=== PATIENT | female | born 1995 | race Caucasian/White ===

== ENCOUNTER 2018-01-08 18:28 | Emergency (ER) | payer BC ==
[2018-01-08 20:39] VITALS: BP 107/61
--- NOTE | 2018-01-08 20:41 | UC ---
UC General HPI - HPI Summary HPI Summary: Per dining car hop "Onset cough 01/02-01/03, harsh cough today causing nausea, vomiting x 3 today." -denies any chance of and refuses test. no intercourse in months she reports. -goes to college, no local PCP. -sx started ~ 1 wk ago and got better w/ cough etc. today started vomiting. hard to keep things down. ate 2 bites of cereal and forced herself to keep it down. last vomit was at 17:30. doesnt have appetite and hasnt been able to drink much. no diarrhea. no abd pain. no wheezing. no coffe ground emesis. no blood. no dysuria. - History of Current Complaint Chief Complaint: UCGeneralIllness Stated Complaint: FEVER,NAUSEA Time Seen by Provider: 01/08/18 20:40 Hx Last Menstrual Period: nuvaring Pain Intensity: 3 - Allergy/Home Medications Allergies/Adverse Reactions: Allergies Allergy/AdvReac Type Severity Reaction Status Date / Time No Known Allergies Allergy Verified 01/08/18 20:31 Home Medications: Home Medications Acetaminophen [Extra Strength Non-Aspirin] 1,000 mg PO ONCE PRN 01/08/18 [ History Confirmed 01/08/18] Etonogest/Eth.estradiol (Nf) [Nuvaring Vaginal Ring] 1 each VAGINAL .SEE COMMENTS 01/08/18 [History Confirmed 01/08/18] PMH/Surg Hx/FS Hx/Imm Hx Previously Healthy: Yes - Surgical History Surgical History: None - Family History Known Family History: Negative: Respiratory Disease - no asthma - Social History Alcohol Use: Occasionally Substance Use Type: None Smoking Status (MU): Never Smoked Tobacco Review of Systems Constitutional: Negative Skin: Negative Eyes: Negative ENT: Negative Respiratory: Cough Cardiovascular: Negative Gastrointestinal: Vomiting, Nausea Genitourinary: Negative Motor: Negative Neurovascular: Negative Musculoskeletal: Negative Neurological: Negative Psychological: Negative Is Patient Immunocompromised?: No All Other Systems Reviewed And Are Negative: Yes Physical Exam Triage Information Reviewed: Yes Appearance: Well-Appearing, No Pain Distress, Well-Nourished Vital Signs: Initial Vital Signs Temp 98.5 F 01/08/18 20:33 Pulse 61 01/08/18 20:33 Resp 12 01/08/18 20:33 BP 107/61 01/08/18 20:33 Pulse Ox 100 01/08/18 20:33 Vital Signs Reviewed: Yes Eye Exam: Normal Eyes: Positive: Conjunctiva Clear ENT Exam: Normal ENT: Positive: Pharynx normal, TMs normal. Negative: Tonsillar swelling, Tonsillar exudate, Sinus tenderness Dental Exam: Normal Neck exam: Normal Neck: Positive: Supple, Nontender, No Lymphadenopathy Respiratory Exam: Normal Respiratory: Positive: Lungs clear, Normal breath sounds, No respiratory distress, No accessory muscle use. Negative: Crackles, Rhonchi, Stridor, Wheezing Cardiovascular Exam: Normal Cardiovascular: Positive: RRR, No Murmur, Pulses Normal Abdomen Description: Positive: Nontender, Soft. Negative: CVA Tenderness (R), CVA Tenderness (L) Bowel Sounds: Positive: Present Musculoskeletal Exam: Normal Neurological Exam: Normal Psychological Exam: Normal Skin Exam: Normal Course/Dx - Course Course Of Treatment: Zofran given here and rx for home. increase fluids, rest. supportive care. f/u in ER if sx owrsen as may need IVF. discussed improtance of role in hydration. resp exam is nml. - Differential Dx - Multi-Symptom Differential Diagnoses: Other - gastrenterits Provider Diagnoses: nausea & vomiting Discharge - Sign-Out/Discharge Documenting (check all that apply): Patient Departure All imaging exams completed and their final reports reviewed: No Studies - Discharge Plan Condition: Stable Disposition: HOME Prescriptions: Ondansetron [Zofran Odt] 4 mg PO Q6HR 5 Days #14 tab.rapdis Patient Education Materials: Acute Nausea and Vomiting (ED) Referrals: No Primary Care Phys,NOPCP [Primary Care Provider] - Additional Instructions: Follow up at [facility] in 3-5 days. Take the zofran to help the nausea so that you can drink plenty fluids. If you feel worse, I recommend going to the ER for possible IV fluids. Get plenty of rest. - Billing Disposition and Condition Condition: STABLE Disposition: Home
[2018-01-08] MEDS ORDERED: Ondansetron ODT TAB* 4 MG PO ONE (21:09)
== END 2018-01-08 21:30 | disposition home or self-care (01) ==
LOC: UCCORT 18:28
DX: R11.2 Nausea with vomiting, unspecified (principal)
CPT/HCPCS: 81003; 99202; A9270-GY; G0463